=== PATIENT | female | born 1940 | race African-American/Black ===

== ENCOUNTER 2017-05-10 10:51 | Outpatient (RCR) | payer MEDICARE, MEDICAID | END 2017-05-12 | disposition home or self-care (01) | LOC: PTY 10:51 | DX: M25.511 Pain in right shoulder (principal) | CPT/HCPCS: 97110; 97140; 97162; G0283; G8978; G8979 ==

== ENCOUNTER 2017-06-11 08:20 | Outpatient (RCR) | payer MEDICARE, MEDICAID | END 2017-06-12 | disposition home or self-care (01) | LOC: PTY 08:20 | DX: M25.511 Pain in right shoulder (principal); M48.00 Spinal stenosis, site unspecified | CPT/HCPCS: 97110; 97140; 97530; G0283 ==

== ENCOUNTER 2017-07-11 09:15 | Outpatient (RCR) | payer MEDICARE, OTHER | END 2017-07-12 | disposition home or self-care (01) | LOC: PTY 09:15 | DX: M25.511 Pain in right shoulder (principal); M48.00 Spinal stenosis, site unspecified | CPT/HCPCS: 97035; 97110; 97140; G0283; G8978; G8979 ==

== ENCOUNTER 2017-07-23 08:30 | Outpatient (RCR) | payer MEDICARE, OTHER | END 2017-08-12 | disposition home or self-care (01) | LOC: PTY 08:30 | DX: M25.511 Pain in right shoulder (principal); M48.00 Spinal stenosis, site unspecified | CPT/HCPCS: 97110; 97140; G0283 ==